=== PATIENT | male | born 1995 | race Caucasian/White ===

== ENCOUNTER 2017-03-09 19:00 | Emergency (ER) | payer OTHER ==
[2017-03-09 19:08] VITALS: TEMP 98.6
--- NOTE | 2017-03-09 19:19 | EDPHY ---
General Narrative: CHIEF COMPLAINT: Weakness, fever, shortness of breath HISTORY OF PRESENT ILLNESS: Patient complains of shortness of breath, weakness, fatigue, fever, mild cough, feeling sick. This originally started on Monday when he returned from [facility]. Symptoms worsened on Monday with fever, T-max of a 101. He has had no neck pain or stiffness. No headache. No chest pain at any time. History this of breath is described as more of a weakness than true shortness of breath. Symptoms are mild to moderate and persistent. No improvement with [id number] medications. He presented to Urgent Care earlier today. They performed a strep test that was reportedly negative. They sent him to our facility for higher level care. No other associated complaints or modifying factors. REVIEW OF SYSTEMS: Ten systems reviewed and are negative unless otherwise noted in the HPI PCP: None locally. SPECIALISTS: None PAST MEDICAL HISTORY: None PAST SURGICAL HISTORY: None SOCIAL HISTORY: Originally from [place]. Attends [employer] in [facility] FAMILY HISTORY: Noncontributory EXAMINATION General Appearance: Alert, no distress Head: normocephalic, atraumatic Eyes: Pupils equal and round, no conjunctival pallor or injection ENT, Mouth: Mucous membranes moist. Uvula midline. Airway widely patent. Mild posterior erythema. No exudate. There is anterior cervical lymphadenopathy. No trismus. Neck: Normal inspection, supple, non-tender. Painless range of motion all planes. No meningismus or rigidity. Respiratory: Lungs are clear to auscultation. No wheezing rhonchi or crackles Cardiovascular: Regular rate and rhythm. No murmur. Gastrointestinal: Abdomen is soft and nontender. No rigidity. No hepatomegaly. No splenomegaly. Back: non-tender, no bony abnormalities Neurological: GCS 15. Cranial nerves 2-12 grossly intact. A&O, nonfocal, normal gait Skin: Warm and dry, no rash. No petechiae or purpura Extremities: Nontender, no pedal edema Psychiatric: Mood and affect normal DIFFERENTIAL DIAGNOSES: Including but not limited to viral etiology, pneumonia, influenza, infectious mononucleosis, PE, bronchitis, pharyngitis MDM: 7:20 p.m. Weakness with reported fever, malaise, shortness of breath, body aches mild cough. Examination suggest viral etiology, highly suspicious for mononucleosis. His vital signs are within normal limits. He is in no acute distress. He has no meningismus or rigidity. Abdominal exam is benign. I have ordered laboratory studies of the request. I have ordered influenza mono test. He is resting comfortably in no acute distress. He has shortness of breath but no chest pain. He is perc negative, thus I did not order a d-dimer. 8:20 p.m. Laboratory studies confirm suspicion of mono. Chest x-ray is unremarkable. I have re-evaluated the patient at this time. He remains comfortable. He has received 1 L IV fluid feeling much better. Airway remains patent with minimal erythema. I do not feel he would benefit from steroids at this time. We discussed hydration, rest, anti-inflammatories. We discussed ED precautions. We discussed contact precautions with family members. He is comfortable this plan and discharged home stable condition. SUPERVISION: Patient was independently examined, but I discussed the case with my secondary supervising physician Dr. Loza - History Smoking Status: Never smoked - Objective Vital Signs: Initial Vital Signs Temperature (C) 98.6 F 03/09/17 19:06 Heart Rate 78 03/09/17 19:06 Respiratory Rate 18 03/09/17 19:06 Blood Pressure 138/61 H 03/09/17 19:06 O2 Sat (%) 98 03/09/17 19:06 O2 Delivery Mode Room Air Allergies/Adverse Reactions: penicillin G Allergy (Verified 03/09/17 19:08) opiates Allergy (Uncoded 03/09/17 19:08) Home Medications: Medication Instructions Recorded NK [No Known Home Meds] 03/09/17 Departure - Departure Disposition: Home, Routine, Self-Care Clinical Impression: Infectious mononucleosis without complication Qualifiers: Infectious mononucleosis etiology: other organism Qualified Code(s): B27.80 - Other infectious mononucleosis without complication Acute pharyngitis Qualifiers: Pharyngitis/tonsillitis etiology: infectious mononucleosis Qualified Code(s): J02.9 - Acute pharyngitis, unspecified; B27.90 - Infectious mononucleosis, unspecified without complication; B27.90 - Infectious mononucleosis, unspecified without complication Condition: Good Instructions: Mononucleosis (ED), Pharyngitis (ED) Additional Instructions: 1. Rest and increase fluid intake 2. [id number] anti-inflammatories, ibuprofen 600 mg every 8 hr or Aleve 1 -2 pills every 12 hr 3. Contact on-call primary care physician to establish while you are in town for the holiday 4. ED precautions as discussed Referrals: Juliano Moscoso MD [Medical Doctor] - As per Instructions
[2017-03-09 19:39] LABS: PLATELET COUNT 121 10^3/uL (150-400)
[2017-03-09 20:49] VITALS: BP 136/60; PULSE 82; RESP 16; O2SAT 99
== END 2017-03-09 20:50 | disposition home or self-care (01) ==
DX: J02.9 Acute pharyngitis, unspecified (principal); B27.90 Infectious mononucleosis, unspecified without complication